=== PATIENT | male | born 1960 | race Asian ===

== ENCOUNTER 2017-07-09 19:22 | Emergency (ER) | payer MEDICARE ==
[~2017-07-09] VITALS: Ht 170.2 cm; Wt 81.8 kg
[~2017-07-09 19:22] MED LIST: ASPI-556 PO; ATOR40TA28 PO; INSU100C4 SQ; INSU100I3 SQ; METF1000 PO; METO100XL PO; VALS160T2 PO
[2017-07-09] MEDS ORDERED: INSNOV SQ (19:51)
[2017-07-09 19:57] LABS: GLUCOSE,POINT OF CARE 131 MG/DL (70-110)
[2017-07-09 20:21] LABS: HEMATOCRIT 40.5 % (41-53); HEMOGLOBIN 13.5 g/dL (13.5-17.5); MEAN CORPUSCULAR HEMOGLOBIN 29.7 pg (26.0-34.0); MEAN CORPUSCULAR HGB CONC 33.5 G/dL (31.0-37.0); MEAN CORPUSCULAR VOLUME 89 fL (80-100); PLATELET COUNT (AUTO) 223 K/uL (150-450); RED BLOOD CELL COUNT(AUTO) 4.56 MIL/uL (4.50-5.90); RED CELL DISTRIBUTION WIDTH 13.7 % (11.5-14.5)
[2017-07-09 20:31] LABS: CALCIUM, TOTAL 9.1 mg/dL (8.8-10.5); CREATININE 2.41 mg/dL (0.60-1.30); POTASSIUM 4.5 mmol/L (3.5-5.1)
[2017-07-09 20:39] LABS: ALBUMIN 3.8 g/dL (3.4-5.0); BILIRUBIN,TOTAL 2.4 mg/dL (0.1-1.0); TOTAL PROTEIN, SERUM 8.1 g/dL (6.4-8.2)
[2017-07-09 20:40] LABS: BAND NEUTROPHILS % (MANUAL) 30 % (1-5); LYMPHOCYTES % (MANUAL) 8 % (22-44); MONOCYTES % (MANUAL) 1 % (2-9); SEGMENTED NEUTROPHILS % 61 % (40-70)
[2017-07-09 20:42] LABS: APPEARANCE,URINE CLEAR (CLEAR); GLUCOSE, URINE (UA) NEGATIVE (NEGATIVE); KETONES,URINE TRACE mg/dL (NEGATIVE); LEUKOCYTE ESTERASE ,URINE NEGATIVE (NEGATIVE); NITRATE,URINE NEGATIVE (NEGATIVE); OCCULT BLOOD,URINE NEGATIVE (NEGATIVE); PH,URINE 5.5 (5.0-8.0); PROTEIN,URINE TRACE (NEGATIVE)
[2017-07-09] MEDS ORDERED: ONDANSETRON HCL 4 MG/2 ML VIAL IVP ONE (20:45)
[2017-07-09] MEDS ORDERED: SODIUM CHLORIDE 0.9% 1,000 ML IV ONE (20:45)
[2017-07-09 20:47] LABS: BILIRUBIN,URINE PRELIM. POSITIVE (NEGATIVE)
[2017-07-09] MEDS ORDERED: PIPERACILLIN/TAZO 3.375 GM/D5W 50 ML IV ONE (23:00)
[2017-07-10] MEDS ORDERED: LORazepam 2 MG/ML VIAL IVP ONE (08:15)
[2017-07-10 10:48] LABS: GLUCOSE,POINT OF CARE 106 MG/DL (70-110)
[2017-07-10 13:27] VITALS: BP 120/80
== END 2017-07-10 14:23 | disposition short-term general hospital (02) ==
LOC: EMS 19:24
DX: K80.42 Calculus of bile duct with acute cholecystitis without obstruction (principal); E80.7 Disorder of bilirubin metabolism, unspecified; R79.89 Other specified abnormal findings of blood chemistry; E11.9 Type 2 diabetes mellitus without complications; E78.00 Pure hypercholesterolemia, unspecified; I10 Essential (primary) hypertension
CPT/HCPCS: 36415; 74181; 76700; 80053; 81003; 82962; 83690; 84484; 85025; 93005; 96361; 96365; 96375; 99285; J2060; J2405; J2543; J7030